=== PATIENT | female | born 1995 | race Caucasian/White ===

== ENCOUNTER 2022-04-21 19:59 | Emergency (ER) | payer OTHER ==
--- NOTE | 2022-04-21 21:11 | ED Physician Documentation ---
PD HPI LOWER EXT INJURY - Stated complaint Stated Complaint: LT ANKLE INJ - Chief complaint Chief Complaint: Trauma Ext - History obtained from History obtained from: Patient - Additional information Additional information: Patient is a 27-year-old female presenting for evaluation of left ankle pain. She reports falling 30 minutes ago and twisting her ankle. She had recently injured the same ankle 3 weeks ago and had been using a walking boot And crutches. She denies hitting her head or pain elsewhere. The pain is to the lateral ankle.It is worse with ambulation. Review of Systems Constitutional: denies: Fever Cardiac: denies: Chest pain / pressure Respiratory: denies: Dyspnea GI: denies: Abdominal Pain Musculoskeletal: reports: Joint pain Neurologic: denies: Head injury PD PAST MEDICAL HISTORY - Present Medications Home Medications: Ambulatory Orders Medication Instructions Recorded Confirmed Escitalopram [Lexapro] 10 mg PO DAILY 04/21/22 04/21/22 - Allergies Allergies/Adverse Reactions: Allergies Allergy/AdvReac Type Severity Reaction Status Date / Time No Known Drug Allergies Allergy Verified 04/21/22 20:06 PD ED PE NORMAL - General General: Alert and oriented X 3, No acute distress, Well developed/nourished - HEENT HEENT: Atraumatic - Neck Neck: Supple, no meningeal sign - Cardiac Cardiac: Strong equal pulses - Respiratory Respiratory: No respiratory distress - Extremities Extremities: No deformity, No calf tenderness / cord, Other (Tenderness near lateral malleolus with mild swelling, no other deformities, pedal pulses intact, motor and sensation intact, no tenderness to fibular head or elsewhere in lower extremity) Results - Vitals Vitals: Vital Signs - 24 hr 04/21/22 04/21/22 20:01 21:18 Temperature 36.8 C Heart Rate 90 81 Respiratory 14 18 Rate Blood Pressure 137/91 H 135/87 H O2 Saturation 98 97 Oxygen O2 Source Room air PD MEDICAL DECISION MAKING - ED course Complexity details: reviewed results, d/w patient ED course: Patient with left ankle injury. No fracture dislocation seen on x-ray. Patient has walking boot and crutches at home and feels comfortable with using these. Counseled on continuing supportive care as well as concerning symptoms to return for. Departure - Departure Disposition: 01 Home, Self Care Clinical Impression: Left ankle injury Qualifiers: Encounter type: initial encounter Qualified Code(s): S99.912A - Unspecified injury of left ankle, initial encounter Condition: Stable Instructions: ED Sprain Ankle Follow-Up: [facility] Ahuja [Provider Group] Comments: I do not see a fracture or dislocation on your ankle x-ray. You likely have another sprain. I would recommend using of the walking boot and crutches that you already have. Please also continue with elevating, icing and using anti- inflammatories such as ibuprofen or acetaminophen. I do [facility] If you have any new or worsening symptoms you can Demetrio return to the emergency department. Forms: Activity restrictions Discharge Date/Time: 04/21/22 21:23
[2022-04-21 21:20] VITALS: BP 135/87
--- NOTE | 2022-04-21 22:50 | XRAY Report ---
PROCEDURE: Ankle 3 View LT INDICATIONS: Trauma TECHNIQUE: 3 views of the ankle were acquired. COMPARISON: None. FINDINGS: Bones: No fractures or dislocations. Ankle mortise is normally aligned. No suspicious bony lesions . Soft tissues: No tibiotalar joint effusion. Achilles tendon appears normal. IMPRESSION: 1. No fracture or dislocation. Reviewed by: Oscar Marie MD on 04/21/2022 10:49 PM PDT Approved by: Oscar Marie MD on 04/21/2022 10:49 PM PDT Station ID: [id number]
== END 2022-04-21 21:23 | disposition home or self-care (01) ==
LOC: ED 19:59
DX: S99.912A Unspecified injury of left ankle, initial encounter (principal); X50.1XXA Overexertion from prolonged static or awkward postures, initial encounter
CPT/HCPCS: 99282; 99283

== ENCOUNTER → 2022-10-18 | Outpatient (CLI) | payer OTHER ==
--- NOTE | 2022-10-24 10:09 | MRI Report ---
PROCEDURE: ANKLE WO - LT INDICATIONS: LEFT ANKLE PAIN TECHNIQUE: Noncontrast sagittal T1 spin echo and T2 fast spin echo with fat saturation, axial proton density fas t spin echo and T2 fast spin echo with fat saturation, coronal T1 spin echo and T2 fast spin echo wit h fat saturation through the ankle/hindfoot. COMPARISON: Left ankle radiograph dated 04/21/2022. FINDINGS: Image quality: Excellent. Bones and joints: No bone marrow contusions or fractures. No hindfoot coalitions. No osteochondral injuries of the talar dome. No pathologic joint effusions. Nonspecific intraosseous cystic areas a re noted involving mid to distal portion of calcaneus. Medial structures: The posterior tibialis, flexor digitorum longus, and flexor hallucis longus tendo ns are intact. Small amount of fluid distending flexer tendon sheath is seen. The posterior tibial n eurovascular bundle appears normal within the tarsal tunnel, without extrinsic mass effect. The delt oid ligament and spring ligament are intact. Lateral structures: The anterior talofibular, calcaneofibular, and posterior talofibular ligaments a ppear intact. More superiorly, the anterior and posterior tibiofibular ligaments appear normal, as i s the intermalleolar ligament. The tibiofibular syndesmosis is normal in width at 2 mm or less. The peroneus longus and brevis tendons demonstrate normal location and morphology. Adjacent bony perone al tubercle and retrotrochlear prominence are normal in size. The sinus tarsi demonstrates normal fa tty signal, without edema, fibrosis, or cyst formation. Visualized sinus tarsi components (cervical ligament, interosseous talocalcaneal ligament, roots of the inferior extensor retinaculum) appear nor mal. Anterior structures: The tibialis anterior, extensor hallucis longus, and extensor digitorum longus tendons appear intact. The dorsal talonavicular ligament is thickened. Posterior and plantar structures: Achilles tendon is intact. Medial and lateral bands of the planta r fascia are of normal thickness. No abductor digiti quinti muscle atrophy to suggest Peace neuropa thy. IMPRESSION: 1. Nonspecific intraosseous cystic area is in mid to distal calcaneus. No ankle fracture or dislocati on. No osteochondral injuries of talar dome. 2. Suggestion of low-grade tenosynovitis involving flexor tendons. 3. Medial and lateral ankle ligaments are intact. Sprain involving dorsal talonavicular ligament. 4. Achilles tendon is intact. Reviewed by: Vikram Dill MD on 10/24/2022 10:07 AM PDT Approved by: Vikram Dill MD on 10/24/2022 10:07 AM PDT Station ID: [id number]
== END ==
LOC: DI 17:24
PROVIDERS: ATTEND Podiatrist
DX: S93.492A Sprain of other ligament of left ankle, initial encounter (principal)

== ENCOUNTER 2022-10-23 14:11 | Emergency (ER) | payer OTHER ==
--- NOTE | 2022-10-23 15:08 | ED Physician Documentation ---
History of Present Illness - Stated complaint Stated Complaint: HEADACHE/HEAVY EYES - Chief complaint Chief Complaint: Heent - History obtained from History obtained from: Patient - History of Present Illness Pain level max: 0 Pain level now: 0 - Additonal information Additional information: Patient is a 27-year-old female who presents to the emergency department after being referred by optometry She states that they did a nondilated eye exam on her today and told her that she had bilateral papilledema. She states that she has had migraine headaches for over 10 years. She states currently she has a headache that is 1 out of 10. She states that her referral clerk told her to come here for an MRI. She has no fevers. No chills. No neck pain. No photophobia. No nausea or vomiting. Review of Systems Constitutional: denies: Fever, Chills Throat: denies: Sore throat Respiratory: denies: Cough GI: denies: Nausea, Vomiting, Diarrhea Skin: denies: Rash Musculoskeletal: denies: Neck pain, Back pain Neurologic: reports: Headache (1 out of 10, frontal, gradual in onset. Is been present for 30 minutes). denies: Focal weakness, Numbness, Head injury, LOC PD PAST MEDICAL HISTORY - Past Medical History Past Medical History: Yes - Past Surgical History Past Surgical History: No - Present Medications Home Medications: Ambulatory Orders Medication Instructions Recorded Confirmed Fluoxetine HCl [Prozac] 20 mg PO DAILY 10/23/22 10/23/22 buPROPion HCL [Bupropion Xl] 150 mg PO DAILY 10/23/22 10/23/22 - Allergies Allergies/Adverse Reactions: Allergies Allergy/AdvReac Type Severity Reaction Status Date / Time No Known Drug Allergies Allergy Verified 10/23/22 14:19 - Social History Does the pt smoke?: No Smoking Status: Never smoker - Immunizations Immunizations are current?: Yes PD ED PE NORMAL - Vitals Vital signs reviewed: Yes - General General: Alert and oriented X 3, No acute distress - HEENT HEENT: PERRL (no papilledema on exam here. 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, No motor deficit, No sensory deficit, Normal speech, Other (Ocular ultrasound bilaterally reveals a 4.6 OD and 4.8 OS mm optic nerve sheath measured 3 mm behind the optic nerve head.) Eye Opening: Spontaneous Motor: Obeys Commands Verbal: Oriented GCS Score: 15 Results - Vitals Vitals: Vital Signs - 24 hr 10/23/22 10/23/22 14:16 18:14 Temperature 36.9 C 36.8 C Heart Rate 89 88 Respiratory 16 16 Rate Blood Pressure 134/84 H 130/82 H O2 Saturation 99 100 Oxygen O2 Source Room air - Rads (name of study) Brain MRI Relevant Findings:: Final report received, See rad report PD Medical Decision Making - ED course Complexity details: reviewed results, re-evaluated patient, considered differential, d/w patient, d/w [employer] consultant (referral clerk who saw here today, requested records be sent. records never received) ED course: No acute findings on MRI of the brain. No evidence of papilledema on ultrasound here. Normal nerve sheath diameter. No significant headache. We did discuss a lumbar puncture, but given the patient is asymptomatic in the emergency department. She declines this at this time. She is not having an increase in her usual headache. She has had migraines for over 10 years. Recommend that she follow-up with a neurologist for further care. Patient can follow-up with an strategic analyst as well. Patient counseled regarding signs and symptoms for which I believe and urgent re-evaluation would be necessary. Patient with good understanding of and agreement to plan and is comfortable going home at this time This document was made in part using voice recognition software. While efforts are made to proofread this document, sound alike and grammatical errors may occur. No emergency medical condition at this time Departure - Departure Disposition: 01 Home, Self Care Clinical Impression: Headache Qualifiers: Headache type: unspecified Headache chronicity pattern: unspecified pattern Intractability: not intractable Qualified Code(s): R51.9 - Headache, unspecified Condition: Good Instructions: ED Headache Migraine Follow-Up: [facility] [Provider Group] Dariusz Martinez MD [Provider Admit Priv/Credential] - [facility] [Provider Group] Comments: Your MRI is normal today. Your bedside ultrasound shows normal diameter of your optic nerve sheath. It is recommended that you follow-up with your PCM for further care. They may want for you to neurology to discuss whether a lumbar puncture would be useful. Discharge Date/Time: 10/23/22 18:14
--- NOTE | 2022-10-23 17:21 | MRI Report ---
PROCEDURE: BRAIN WO INDICATIONS: B papilledema TECHNIQUE: Noncontrast axial T1 spin echo, axial T2 fast spin echo, sagittal and axial FLAIR, coronal T2 fast sp in echo, axial gradient echo, axial diffusion and ADC through the brain. COMPARISON: None. FINDINGS: Image quality: Excellent. CSF Spaces: Basal cisterns are patent. No extra-axial fluid collections. Ventricles are normal in size and shape. Brain: No intracranial masses or hemorrhage. Armijo/white matter interface is normal. Brainstem appe ars normal. Diffusion-weighted images demonstrate no acute ischemic insult. No chronic ischemic ins ults. Normal intravascular flow voids are present. Skull and face: Calvarium has normal marrow signal. Orbits appear normal. Sinuses: Sinuses and mastoids are clear. IMPRESSION: Normal brain MRI exam. A cause for bilateral papilledema is not identified. Reviewed by: Kuldeep Amador MD on 10/23/2022 5:20 PM PDT Approved by: Kuldeep Amador MD on 10/23/2022 5:20 PM PDT Station ID: [id number]
[2022-10-23 18:15] VITALS: BP 130/82
== END 2022-10-23 18:14 | disposition home or self-care (01) ==
LOC: ED 14:11
DX: R51.9 Headache, unspecified (principal)
CPT/HCPCS: 99283; 99284

== ENCOUNTER 2023-08-29 09:59 | Outpatient (CLI) | payer OTHER ==
--- NOTE | 2023-08-29 11:00 | Sleep Patient Instructions ---
Sleep Center Visit Summary - Patient Visit Information Reason for Visit: Initial consult for evaluation of sleep disordered breathing and other sleep issues. - Patient Instructions Instructions Attached: CPAP Additional Instructions: You are being started on CPAP therapy with pressure setting at 4-15 cmH2O. You will need to call the sleep care office to set up your follow up once you have your APAP machine and we will schedule a visit to check compliance and response to therapy at that time. You may call the office with any concerns about pressure feeling too low or too much for adjustment, if needed. You should contact DME supplier for any questions or concerns about mask or equipment. Please call office to schedule a follow up appointment in the sleep care office one month after obtaining new device. - Clinic Information Contact: [facility] [address] [place] [address] [email or web address] T: [phone]
--- NOTE | 2023-08-29 11:07 | SLEEP CARE CONSULTATION ---
Information from patient questionnaire entered by Liliana Gonzalez. I have reviewed and concur with the information entered by Liliana Gonzalez. This document represents the service I personally performed and the decisions made by me, Ayesha Argueta ARNP. History of Present Illness Service Date and Time: 08/29/2023 0959 Reason for Visit: New patient, Previously diagnosed sleep apnea Chief Complaint: reports: Insomnia, Unrefreshed sleep, Snoring, Excessive daytime sleepiness, Observed pauses in breathing, Frequent awakenings at night Date of Onset: 1YR Usual bedtime: 1AM Time it takes to fall asleep: 40MINS Snores at night: Yes Observed to quit breathing while asleep: Yes Sleeps alone due to snoring: Yes Number of times waking at night: 3 Reasons for waking at night: reports: Choking, Snoring, Bathroom Toss, Turn, or Twitch while sleeping: Yes Recalls having dreams: Yes Usually gets out of bed at: 11AM Feels refreshed in the morning: No Morning headache: Yes Sleepy or fatigued during the day: Yes Ever fallen asleep while driving: No Takes day naps: Yes Dreams during day naps: Yes Prior sleep studies: Yes Additional HPI information: I had the pleasure of seeing DEION FANG today regarding the possibility of her having a sleep disorder. Her current complaints are excessive daytime sleepiness, frequent night awakenings, insomnia, observed pauses in breathing, snoring and unrefreshed sleep. She has completed a sleep study on 06/01/2023 through [facility] (ordered through [facility]) which showed an AHI of 5.6 and judith oxygen saturation of 67%. She was sent to her PCP who referred her here for treatment. She says the [facility] is ready to send her a CPAP but needs an order. She does not wake up feeling rested and is tired during the day. She does snore and has been observed having pauses in breathing. - Parasomnia Symptoms Ever been unable to move upon waking from sleep: No Walks in sleep: No Talks in sleep: Yes Ever acted out dreams in sleep: Yes Ever felt weak in the knees when startled or emotional: No Bothered by creepy, crawly, restless sensations in legs: Yes Problems with memory or concentration: No Subjective Initial [place] Sleepiness Scale score: 10 (08/29/23) Past Medical History Past Medical History: reports: Anemia, Anxiety, Depression Social History The patient's occupation is a AM. Patient is Single and lives in . Have you smoked in the past 12 months: No Alcohol use: No Caffeine use: Yes Caffeine amount and frequency: 1 PER DAY Family History Family history of sleep disordered breathing: Yes Family Hx Sleep Apnea: Father: Snoring Allergies and Home Medications Known drug allergies: No Drug allergies reviewed: Yes Home medication list reviewed: Yes (as listed) Allergy and home medication list: Allergies No Known Drug Allergies Allergy (Verified 08/27/23 08:56) Home Medications Medication Instructions Recorded Confirmed Last Taken Type Fluoxetine HCl [Prozac] 20 mg PO DAILY 10/23/22 08/29/23 Unknown History buPROPion HCL [Bupropion Xl] 150 mg PO DAILY 10/23/22 08/29/23 Unknown History Review of Systems Weight gain over past 5 years: 50 Cardiovascular: denies: high blood pressure Gastrointestinal: reports: heartburn Neurological: reports: headaches Psychiatric: reports: anxiety, depression Ear/Nose/Throat: denies: tonsillectomy Endocrine: denies: thyroid disease Physical Exam Vital signs obtained and entered by: LILIANA Herr MA Blood Pressure: 125/82 (RIGHT ARM) Cuff size: long Heart Rate: 82 O2 Saturation: 99 Height: 5 ft 2 in Weight: 246 lb 9.6 oz Body Mass Index: 45.1 BMI Classification: Morbidly Obese Neck circumference: 15 Mouth and throat: narrow oropharynx Soft palate: long Hard palate: Torus palatinus Uvula: normal Uvula visualization: 25% Mallampati Class III Tongue: enlarged in size with teeth solano on lateral edges Tonsils: 1+ Neck: normal w/o lymphadenopathy or thyromegaly Heart: regular rate and rhythm Lungs: clear bilaterally Impression and Plan 1. Obstructive Sleep Apnea-Hypopnea Syndrome, mild, with lowest oxygen saturation of 67% as seen in HST done on 06/01/2023 through [facility] Obviously this is the cause of the patients symptoms of unrefreshed sleep, and excessive daytime sleepiness. Positive pressure therapy could benefit depression. The patient will be started on nasal autoCPAP therapy with pressure set at 4-15 cmH2O. Compliance guidelines also reviewed. A copy of compliance guidelines will be given for reference at check out. Patient's apnea severity and rationale for treatment to reduce apnea, improve sleep quality and reduce cardiovascular and cerebrovascular events was reviewed. I also reviewed the benefit of consistent device use of CPAP for depression. 2. Obesity, unspecified. Currently patients BMI is 45.1. Obesity increases the risk of apnea, CPAP pressure requirements and overall health risks especially cardiovascular and diabetes. Thus patient is advised to lose weight. * Nasal auto CPAP therapy, pressure at 4-15 cm H2O. * Attempt to lose weight. * Avoid alcohol consumption near bedtime. * Avoid supine sleep until using CPAP. * The patient is again cautioned about driving until sleepiness completely resolves. * Return one month after CPAP obtained. I will assess response to therapy and compliance at that time. Counseling Topics: Weight loss health impact Prescriptions: Auto CPAP Follow up with Sleep Care in: other (for compliance visit) Plan: CPAP therapy followup Visit Type: In Office Time Spent with Patient (minutes): 30 Provider Statement: I spent 100% of the Face to Face Visit with the patient with greater than 50% spent counseling the patient and coordination of care.
[2023-08-29 11:11] VITALS: BP 125/82; O2SAT 99
== END 2023-08-29 10:00 | disposition home or self-care (01) ==
LOC: SC 09:59
PROVIDERS: ATTEND Nurse Practitioner Family
DX: G47.33 Obstructive sleep apnea (adult) (pediatric) (principal); E66.01 Morbid (severe) obesity due to excess calories; Z68.42 Body mass index [BMI] 45.0-49.9, adult
CPT/HCPCS: 99203; 99212